=== PATIENT | female | born 1955 | race Caucasian/White ===

== ENCOUNTER 2020-02-23 09:56 | Emergency (ER) | payer OTHER ==
[2020-02-23 10:36] LABS: BASOPHILS % (AUTO) 0.6 % (0.0-5.0); EOSINOPHILS % (AUTO) 0.6 % (0.0-8.0); HEMATOCRIT 39.7 % (36-48); LYMPHOCYTES % (AUTO) 25.9 % (21.0-51.0); MEAN CORPUSCULAR HEMOGLOBIN 30.7 pg (27.0-33.0); MEAN CORPUSCULAR HGB CONC 32.7 g/dL (32.0-36.0); MEAN CORPUSCULAR VOLUME 93.6 fL (79-99); NEUTROPHILS % (AUTO) 66.8 % (40.0-77.0); PLATELET COUNT (AUTO) 219 K/uL (130-400); RED BLOOD CELL COUNT(AUTO) 4.24 MIL/uL (4.00-5.50); RED CELL DISTRIBUTION WIDTH 13.2 % (11.0-15.5); WHITE BLOOD COUNT (AUTO) 6.8 K/uL (4.8-10.8)
[2020-02-23 10:41] LABS: POTASSIUM 3.2 mmol/L (3.5-5.1)
[2020-02-23 10:45] LABS: ALBUMIN 3.9 g/dL (3.5-5.0); BILIRUBIN,TOTAL 0.4 mg/dL (0.2-1.0); TOTAL PROTEIN, SERUM 7.7 g/dL (6.0-8.3)
[2020-02-23 11:09] LABS: CREATININE 0.8 mg/dL (0.5-1.5)
[2020-02-23 12:26] LABS: INR 0.95 (0.85-1.15); PARTIAL THROMBOPLASTIN TIME 26.8 SEC (26.3-35.5); PROTHROMBIN TIME 10.3 SEC (9.6-11.6)
== END 2020-02-23 13:02 | disposition home or self-care (01) ==
LOC: EDH 09:56
DX: K64.4 Residual hemorrhoidal skin tags (principal); E87.6 Hypokalemia
CPT/HCPCS: 36415; 80053; 82270; 85025; 85610; 85730

== ENCOUNTER 2021-06-02 18:25 | Emergency (ER) | payer MEDICARE ==
[~2021-06-02] VITALS: Ht 167.6 cm; Wt 71.7 kg
[2021-06-02 18:29] VITALS: BP 119/82
[2021-06-02] MEDS ORDERED: GUAFACSF5L PO (19:58)
[2021-06-02] MEDS ORDERED: GUAIFENESIN-CODEINE 5 ML SYRUP ONE (20:01)
== END 2021-06-02 20:14 | disposition home or self-care (01) ==
LOC: EDH 18:25
DX: U07.1 COVID-19 (principal); J40 Bronchitis, not specified as acute or chronic; Z90.710 Acquired absence of both cervix and uterus
CPT/HCPCS: 71046; 87635; 99284; C9803

== ENCOUNTER 2022-01-30 00:30 | Emergency (ER) | payer MEDICARE ==
[~2022-01-30] VITALS: Ht 168.9 cm; Wt 74.8 kg
[~2022-01-30 00:30] MED LIST: GUAFACSF5L PO
[2022-01-30] MEDS ORDERED: NITROGLYCERIN 0.4 MG SL TAB SL ONE (00:38)
[2022-01-30 01:06] LABS: BASOPHILS % (AUTO) 0.8 % (0.0-5.0); EOSINOPHILS % (AUTO) 1.7 % (0.0-8.0); HEMATOCRIT 40.6 % (36-48); LYMPHOCYTES % (AUTO) 50.4 % (21.0-51.0); MEAN CORPUSCULAR HEMOGLOBIN 31.8 pg (27.0-33.0); MEAN CORPUSCULAR VOLUME 93.5 fL (79-99); MONOCYTES % (AUTO) 6.7 % (3.0-13.0); NEUTROPHILS % (AUTO) 40.3 % (40.0-77.0); PLATELET COUNT (AUTO) 204 K/uL (130-400); RED BLOOD CELL COUNT(AUTO) 4.34 MIL/uL (4.00-5.50); RED CELL DISTRIBUTION WIDTH 13.3 % (11.0-15.5); WHITE BLOOD COUNT (AUTO) 9.1 K/uL (4.8-10.8)
[2022-01-30 01:18] LABS: CREATININE 0.8 mg/dL (0.5-1.5); POTASSIUM 4.1 mmol/L (3.5-5.1)
[2022-01-30 01:21] LABS: ALBUMIN 3.9 g/dL (3.5-5.0); TOTAL PROTEIN, SERUM 7.5 g/dL (6.0-8.3)
[2022-01-30 04:56] VITALS: BP 129/63
== END 2022-01-30 05:03 | disposition home or self-care (01) ==
LOC: EDH 00:30
DX: K22.4 Dyskinesia of esophagus (principal); E78.00 Pure hypercholesterolemia, unspecified; Z79.899 Other long term (current) drug therapy
CPT/HCPCS: 36415; 71045; 80053; 83690; 84484; 85025; 85378; 93005

== ENCOUNTER → 2022-07-07 | Outpatient (CLI) | payer MEDICARE | END | disposition home or self-care (01) | LOC: RAH 07:50 | PROVIDERS: ATTEND Internal Medicine Gastroenterology | DX: K44.9 Diaphragmatic hernia without obstruction or gangrene (principal); R10.13 Epigastric pain; K21.9 Gastro-esophageal reflux disease without esophagitis; R13.10 Dysphagia, unspecified; K22.4 Dyskinesia of esophagus; E78.5 Hyperlipidemia, unspecified | CPT/HCPCS: 74230; 92611 ==